=== PATIENT | male | born 1955 | race Caucasian/White ===

== ENCOUNTER → 2018-09-23 13:09 | Outpatient (CLI) | payer OTHER, SELFPAY ==
[2018-09-03 10:31] VITALS: BMI 39.3
[2018-09-23 17:21] LABS: Absolute Lymphocyte Count 2.01 X10^3/ul (0.83-4.51); Absolute Neutrophil Count 3.8 X10^3/uL (2.0-7.7); Basophil# 0.07 X10^3/uL; Eosinophil# 0.15 X10^3/uL; Eosinophils% 2.2 % (0-5); Hematocrit 43.6 % (40-54); Hemoglobin 14.9 g/dl (13.0-16.5); Lymphocyte # 2.01 X10^3/ul (4.0); Mean Corp Hgb Conc 34.2 g/gl (32-36); Mean Corpuscular Hgb 32.7 pg (27.0-32.0); Mean Corpuscular Volume 95.8 fL (80-94); Mean Platelet Vol. 11.1 fl (6.2-12.0); Monocyte# 0.69 X10^3/uL; Monocyte% 10.3 % (0-10); Neutrophil # 3.76 X10^3/uL (2.7-7.7); Neutrophil % 56.4 % (47-70); Platelet Count 160 K/mm3 (150-450); RBC Distribution Width CV 12.6 % (11.6-14.6); Red Blood Count 4.55 M/mm3 (4.6-6.2); White Blood Count 6.7 K/mm3 (4.4-11.0)
[2018-09-23 17:31] LABS: POSITIVE COUNT NO; POSITIVE DIFFERENTIAL NO; POSITIVE MORPHOLOGY NO
[2018-09-23 17:33] LABS: ALB/GLOB Ratio 1.6 RATIO (0.9-2.4); AST(SGOT) 25 U/L (15-37); Alanine Aminotransfer ALT/SGPT 49 U/L (16-61); Albumin, Serum 4.2 g/dL (3.2-5.0); Alkaline Phosphatase 114 U/L (45-117); Anion Gap 10 (5-15); BUN 27 mg/dL (7-18); BUN/Creat Ratio 25.7 RATIO (10-20); Calcium,Total 8.5 mg/dL (8.5-10.1); Chloride 104 mmol/L (98-107); Creatinine, Serum 1.05 mg/dL (0.70-1.30); EST Glomerular Filtration Rate 76 mL/min (>60); Est Glom Filt Rate - Afr Amer 92 mL/min (>60); Globulin 2.7 g/dL (2.2-4.2); Glucose 98 mg/dL (74-106); Protein, Total 6.9 g/dL (6.4-8.2); Sodium Level 138 mmol/L (136-145); Thyroid Stim Hormone (TSH) 0.88 uIU/mL (0.358-3.74)
== END ==
PROVIDERS: Family Provider Family Medicine Geriatric Medicine; PCP Family Medicine Geriatric Medicine; Visit Provider Family Medicine Geriatric Medicine
DX: E23.6 Other disorders of pituitary gland (principal); F52.8 Other sexual dysfunction not due to a substance or known physiological condition; R53.83 Other fatigue
CPT/HCPCS: 36415; 80053; 84403; 84443; 85025

== ENCOUNTER → 2019-08-12 12:08 | Outpatient (CLI) | payer OTHER, SELFPAY ==
[2018-09-03 10:31] VITALS: BMI 39.3
--- NOTE | 2019-08-12 12:11 | CT_ITS ---
STUDY: LOW DOSE CT LUNG CANCER SCREENING REASON FOR EXAM: Male, 64 years old. Patient smoked 3 cigarettes a day for 34 years. RADIATION DOSAGE (If Supplied By Facility): CTDIvol = ( 4.02 ) mGy, DLP = ( 148.48 ) mGycm TECHNIQUE: No contrast was administered. Low dose technique was utilized (average mAS-38 and kVp 120). 1.25 mm axial source images with a slice interval of 1.25-mm were reconstructed in lung windows. 2.5 mm axial source images with a slice interval of 2.5-mm were reconstructed in lung windows. 5.0 mm axial source images with a slice interval of 5.0-mm were reconstructed in soft tissue windows. Nodule measured using lung windows on PACS and/or independent workstation with automated measurement of minimum and maximum diameter. Nodule measurement reported as average diameter rounded to the nearest whole number. Growth is defined as an increase ins size of greater than 1.5 mm. COMPARISON: Comparison is made with prior examination dated January 26, 2015. NODULES: No suspicious nodules are seen. Emphysema: No significant emphysema is seen. Aorta: Unremarkable. Coronary arteries: Coronary artery calcification. Mediastinal nodes: Small benign-appearing mediastinal lymph nodes. Other chest and abdominal findings: CT/Low Dose CT Lung Screening IMPRESSION: Lung-RADS category 2 - Continue annual screening with LDCT in 12 months. IMPORTANT NOTES FOR USE: ACR Lung-RADS Version 1.0 Assessment Categories Release Date: January 30, 2014 Category: Coded 0-4 bases on nodule(s) with highest degree of suspicion. Negative screen is defined as categories 1 and 2; a positive screen is defined as categories 3 and 4. Category 3 and 4A nodules that are unchanged on interval CT should be coded as category 2, and individuals returned to screening in 12 months. Category 4X: Category 3 or 4 nodules with additional imaging findings that increase the suspicion of lung cancer, such as spiculation, GGN that doubles in size in 1 year, enlarged lymph notes, etc. Category Modifiers: S (significant finding unrelated to lung cancer) and C (prior history of treated lung cancer) may be added to the 0-4 Lung-RADS Electronically Signed: Wilder Wang, at 14:56 EST , Service support ,
== END ==
PROVIDERS: Family Provider Family Medicine Geriatric Medicine; PCP Family Medicine Geriatric Medicine; Referring Provider Family Medicine Geriatric Medicine; Visit Provider Family Medicine Geriatric Medicine
DX: Z87.891 Personal history of nicotine dependence (principal)
CPT/HCPCS: G0297

== ENCOUNTER → 2020-01-24 09:39 | Outpatient (CLI) | payer OTHER, SELFPAY ==
[2018-09-03 10:31] VITALS: BMI 39.3
== END ==
PROVIDERS: PCP Family Medicine Geriatric Medicine; Visit Provider Family Medicine Geriatric Medicine
DX: F52.8 Other sexual dysfunction not due to a substance or known physiological condition (principal); R53.83 Other fatigue

== ENCOUNTER → 2020-01-24 10:24 | Outpatient (CLI) | payer OTHER, SELFPAY ==
[2018-09-03 10:31] VITALS: BMI 39.3
[2020-01-24 10:56] LABS: Absolute Lymphocyte Count 2.04 X10^3/uL (0.83-4.51); Absolute Neutrophil Count 3.3 X10^3/uL (2.0-7.7); Basophil# 0.08 X10^3/uL; Basophil% 1.3 % (0-1); Eosinophil# 0.23 X10^3/uL; Eosinophils% 3.7 % (0-5); Hematocrit 43.5 % (40-54); Hemoglobin 14.8 g/dL (13.0-16.5); Lymphocyte # 2.04 X10^3/ul (4.0); Lymphocyte % 32.5 % (19-41); Mean Corpuscular Hgb 32.5 pg (27.0-32.0); Mean Corpuscular Volume 95.4 fL (80-94); Mean Platelet Vol. 10.2 fl (6.2-12.0); Monocyte# 0.57 X10^3/uL; Monocyte% 9.1 % (0-10); NRBC Flagged by Analyzer 0.3 % (0-5); Neutrophil # 3.33 X10^3/uL (2.7-7.7); Neutrophil % 52.9 % (47-70); Platelet Count 158 K/mm3 (150-450); RBC Distribution Width CV 13.1 % (11.6-14.6); RBC Distribution Width SD 46.5 fl (35.1-43.9); Red Blood Count 4.56 M/mm3 (4.6-6.2); White Blood Count 6.3 K/mm3 (4.4-11.0)
[2020-01-24 11:37] LABS: ALB/GLOB Ratio 1.4 RATIO (0.9-2.4); AST(SGOT) 21 U/L (15-37); Alanine Aminotransfer ALT/SGPT 44 U/L (16-61); Albumin, Serum 4.1 g/dL (3.2-5.0); Alkaline Phosphatase 131 U/L (45-117); Anion Gap 5 (5-15); BUN 18 mg/dL (7-18); BUN/Creat Ratio 19.6 RATIO (10-20); Calcium,Total 9.2 mg/dL (8.5-10.1); Chloride 107 mmol/L (98-107); Creatinine, Serum 0.92 mg/dL (0.70-1.30); EST Glomerular Filtration Rate 88 mL/min (>60); Est Glom Filt Rate - Afr Amer 107 mL/min (>60); Globulin 2.9 g/dL (2.2-4.2); Glucose 104 mg/dL (74-106); PSA,Total - Annual Screen 0.52 ng/mL (0.00-4.00); Potassium 4.1 mmol/L (3.5-5.1); Sodium Level 138 mmol/L (136-145)
== END ==
LOC: LAB.FUTURE 10:30 → LAB 10:32
PROVIDERS: PCP Family Medicine Geriatric Medicine; Referring Provider Family Medicine Geriatric Medicine; Visit Provider Family Medicine Geriatric Medicine
DX: R53.83 Other fatigue (principal); F52.8 Other sexual dysfunction not due to a substance or known physiological condition; Z12.5 Encounter for screening for malignant neoplasm of prostate
CPT/HCPCS: 36415; 80053; 84153; 84403; 84443; 85025; G0103

== ENCOUNTER → 2021-01-24 11:01 | Outpatient (CLI) | payer MEDICARE, SELFPAY ==
[2018-09-03 10:31] VITALS: BMI 39.3
[2021-01-24 12:29] LABS: Absolute Lymphocyte Count 1.75 X10^3/uL (0.83-4.51); Basophil# 0.12 X10^3/uL; Basophil% 1.8 % (0-1); Eosinophil# 0.24 X10^3/uL; Eosinophils% 3.5 % (0-5); Hematocrit 45.5 % (40-54); Hemoglobin 15.4 g/dL (13.0-16.5); Lymphocyte # 1.75 X10^3/ul (0.83-4.51); Lymphocyte % 25.8 % (19-41); Mean Corp Hgb Conc 33.8 g/dL (32-36); Mean Corpuscular Hgb 31.7 pg (27.0-32.0); Mean Corpuscular Volume 93.6 fL (80-94); Mean Platelet Vol. 11.1 fl (6.2-12.0); Monocyte# 0.63 X10^3/uL; Monocyte% 9.3 % (0-10); NRBC Flagged by Analyzer 0.4 % (0-5); Neutrophil # 4.02 X10^3/uL (2.7-7.7); Neutrophil % 59.5 % (47-70); Platelet Count 146 K/mm3 (150-450); RBC Distribution Width CV 12.4 % (11.6-14.6); RBC Distribution Width SD 43.3 fl (35.1-43.9); Red Blood Count 4.86 M/mm3 (4.6-6.2); White Blood Count 6.8 K/mm3 (4.4-11.0)
[2021-01-24 12:51] LABS: Vitamin D,25 Hydroxy 40.5 ng/mL
[2021-01-24 13:05] LABS: ALB/GLOB Ratio 1.6 RATIO (0.9-2.4); AST(SGOT) 32 U/L (15-37); Alanine Aminotransfer ALT/SGPT 90 U/L (16-61); Albumin, Serum 4.2 g/dL (3.2-5.0); Alkaline Phosphatase 118 U/L (45-117); Anion Gap 8 (5-15); BUN 26 mg/dL (7-18); Calcium,Total 8.6 mg/dL (8.5-10.1); Chloride 104 mmol/L (98-107); Creatinine, Serum 1.13 mg/dL (0.70-1.30); EST Glomerular Filtration Rate 69 mL/min (>60); Est Glom Filt Rate - Afr Amer 84 mL/min (>60); Globulin 2.7 g/dL (2.2-4.2); Glucose 108 mg/dL (74-106); PSA,Total - Annual Screen 0.46 ng/mL (0.00-4.00); Potassium 3.6 mmol/L (3.5-5.1); Protein, Total 6.9 g/dL (6.4-8.2); Sodium Level 139 mmol/L (136-145); Thyroid Stim Hormone (TSH) 1.31 uIU/mL (0.358-3.74)
== END ==
PROVIDERS: PCP Family Medicine Geriatric Medicine; Visit Provider Family Medicine Geriatric Medicine
DX: E55.9 Vitamin D deficiency, unspecified (principal); F52.8 Other sexual dysfunction not due to a substance or known physiological condition; R53.83 Other fatigue; Z12.5 Encounter for screening for malignant neoplasm of prostate
CPT/HCPCS: 36415; 80053; 82306; 84153; 84403; 84443; 85025; G0103

== ENCOUNTER → 2021-02-12 15:23 | Outpatient (CLI) | payer MEDICARE, BC, SELFPAY ==
[2018-09-03 10:31] VITALS: BMI 39.3
--- NOTE | 2021-02-12 15:28 | MRI_ITS ---
STUDY: MRI BRAIN WITH AND WITHOUT CONTRAST (ATTENTION INTERNAL AUDITORY CANALS - I.A.C.''s) REASON FOR EXAM: Male, 66 years old. VERTIGO TECHNIQUE: Standardized multiplanar fat and water weighted pulse sequences were obtained. IV Yes YES was administered for the contrast portion of the examination. COMPARISON: None. FINDINGS: Normal bilateral temporal bones. Normal bilateral internal auditory canals. There is no demonstrated intracanalicular or cisternal vestibular schwannoma (acoustic neuroma). There is no enhancement of the bilateral VIIth or VIIIth cranial nerves. Normal bilateral cochlea, vestibules and semicircular canals. Normal size of the ventricles and extra-axial spaces for the patient''s age. Normal white matter tracts of the supratentorial brain. There is no evidence for recent intracranial ischemia or other cause of cytotoxic edema on diffusion weighted imaging (DWI). Normal bilateral basal ganglia. Normal thalami. Normal flow voids within the major intracranial circulation suggesting patency by spin echo criteria. Normal venous enhancement. There is no enhancing intra-axial or extra-axial abnormality. There is no extra-axial fluid accumulation. Normal sella turcica, pituitary gland, infundibular stalk, optic chiasm and hypothalamus. Normal tectal plate and pineal gland. Normal midbrain, jeni and medulla. Normal cerebellum. Normal basal cisterns. No demonstrated orbital abnormality, within the constraints of a routine brain study. Normal visualized paranasal sinuses. Normal calvarium and skull base. Normal visualized soft tissue structures. Normal visualized upper cervical spine. MRI/Brain W/WO Contrast IMPRESSION: Normal unenhanced and enhanced MRI of the bilateral internal auditory canals (I.A.C''s). Electronically Signed: Hammad Monsalve MD at 8:20 EDT Tel , Service support ,
== END ==
PROVIDERS: PCP Family Medicine Geriatric Medicine; Referring Provider Otolaryngology; Visit Provider Otolaryngology
DX: R42 Dizziness and giddiness (principal)
CPT/HCPCS: 70553; A9575

== ENCOUNTER → 2021-08-19 17:15 | Outpatient (CLI) | payer MEDICARE, BC, SELFPAY ==
[2021-08-19 17:45] LABS: Absolute Lymphocyte Count 2.12 X10^3/uL (0.83-4.51); Basophil# 0.11 X10^3/uL; Basophil% 1.3 % (0-1); Eosinophils% 2.4 % (0-5); Hematocrit 42.2 % (40-54); Hemoglobin 14.5 g/dL (13.0-16.5); Lymphocyte # 2.12 X10^3/ul (0.83-4.51); Lymphocyte % 25.1 % (19-41); Mean Corp Hgb Conc 34.4 g/dL (32-36); Mean Corpuscular Hgb 33.1 pg (27.0-32.0); Mean Corpuscular Volume 96.3 fL (80-94); Monocyte# 0.95 X10^3/uL; Monocyte% 11.2 % (0-10); NRBC Flagged by Analyzer 0.6 % (0-5); Neutrophil # 5.02 X10^3/uL (2.7-7.7); Neutrophil % 59.4 % (47-70); Platelet Count 151 K/mm3 (150-450); RBC Distribution Width CV 12.7 % (11.6-14.6); RBC Distribution Width SD 45.7 fl (35.1-43.9); Red Blood Count 4.38 M/mm3 (4.6-6.2); White Blood Count 8.5 K/mm3 (4.4-11.0)
[2021-08-19 19:00] LABS: Anion Gap 4 (5-15); BUN 13 mg/dL (7-18); CPK Total, Creatine Kinase 55 U/L (39-308); Chloride 106 mmol/L (98-107); Creatinine, Serum 0.93 mg/dL (0.70-1.30); EST Glomerular Filtration Rate 87 mL/min (>60); Est Glom Filt Rate - Afr Amer 105 mL/min (>60); Glucose 97 mg/dL (74-106); Potassium 4.1 mmol/L (3.5-5.1); Sodium Level 139 mmol/L (136-145); Troponin-I HS 5 pg/mL (3.0-78.0)
[2021-08-21 10:03] LABS: Myoglobin, Serum 35 ng/mL (28-72)
== END ==
PROVIDERS: PCP Family Medicine Geriatric Medicine; Visit Provider Family Medicine Geriatric Medicine
DX: R07.9 Chest pain, unspecified (principal)
CPT/HCPCS: 36415; 80048; 82550; 83874; 84484; 85025

== ENCOUNTER → 2021-09-04 05:59 | Outpatient (CLI) | payer MEDICARE, BC, SELFPAY ==
--- NOTE | 2021-09-04 06:08 | ECHOCS_ITS ---
Reason For Study: SOB Procedure This was a 2D Doppler, Color Flow transthoracic echocardiogram. Contrast injection was performed. Exam performed in department. Left Ventricle Normal LV size. Left ventricular systolic function is normal. The estimated ejection fraction is 60 %. No regional wall motion abnormalities noted. Right Ventricle Normal RV size. Normal systolic function. Atria Normal left atrium. Normal right atrium. Mitral Valve Normal mitral valve. Tricuspid Valve Normal tricuspid valve. Aortic Valve Trisinus/trileaflet aortic valve. Pulmonic Valve The pulmonic valve is not well visualized. Great Vessels Normal aortic root. The pulmonary artery is normal size. Normal inferior vena cava. Pericardium/Pleural No pericardial effusion. Medication Diluted definity 2ml given slow IV push to enhance endocardial definition. MMode/2D Measurements & Calculations LVIDd: 4.8 cm IVSd: 1.2 cm Ao root diam: 3.5 cm LVIDs: 2.7 cm LVPWd: 0.92 cm RVDd: 3.2 cm FS: 43.7 % LAV(MOD-bp): 31.6 ml LVAd ap4: 32.0 cm2 SV(MOD-sp4): 67.4 ml LAV(MOD-bp) Indexed: 12.9 ml/m2 LVLd ap4: 8.1 cm LAV(MOD-sp2): 31.3 ml EDV(MOD-sp4): 104.9 ml LAV(MOD-sp4): 30.3 ml EDV(sp4-el): 107.2 ml LVAs ap4: 16.4 cm2 LVLs ap4: 5.9 cm ESV(MOD-sp4): 37.6 ml ESV(sp4-el): 39.1 ml EF(MOD-sp4): 64.2 % EF(sp4-el): 63.6 % SV(sp4-el): 68.2 ml LA A4 area: 14.2 cm2 LA dimension(2D): 3.9 cm RA A4 area: 15.8 cm2 Doppler Measurements & Calculations MV E max hernan: 60.4 cm/sec Lat Peak E' Ehrnan: 9.6 cm/sec Med Peak E' Hernan: 5.9 cm/sec MV A max hernan: 86.1 cm/sec E/E' lat: 6.3 E/E' med: 10.3 MV E/A: 0.70 Ao V2 max: 114.7 cm/sec LV V1 max: 103.8 cm/sec PA V2 max: 110.2 cm/sec Ao max P.3 mmHg LV V1 max P.3 mmHg Ao V2 mean: 83.3 cm/sec Ao mean P.0 mmHg Ao V2 VTI: 22.8 cm TR max hernan: 193.9 cm/sec TR max P.0 mmHg ECHO/Echo Complete W/ Contrast Interpretation Summary Normal LV size. Left ventricular systolic function is normal. The estimated ejection fraction is 60 %. Contrast injection was performed. Ordering Physician: Robert Harden Referring Physician: Robert Harden Chi Performed By: Sana Chan, JESUS, RVT
--- NOTE | 2021-09-04 14:55 | STRESSREP_ITS ---
Stress Test Report Date: 09-04-2021 Procedure: Exercise tolerance test/imaging study Indications: Chest pain Consent: Per the patient Procedure: The patient exercised on a El protocol for 6 minutes and 30 seconds completing Stage II and 30 seconds of Stage III achieving a peak heart rate of 134 bpm (86% predicted maximal heart rate) with a peak blood pressure 190/80 mmHg and a peak MET capacity of 8 METs. The baseline ECG demonstrated sinus rhythm. The peak exercise ECG demonstrated somatic/motion artifact with no obvious ECG changes. There was a rare PVC and a rare ventricular couplet during exercise. The functional capacity was considered good. There was no complaint of chest discomfort during exercise or recovery. The examination was discontinued secondary to dyspnea. Impression: 1. Technically adequate (percent predicted maximal heart rate greater than 85%) exercise tolerance test 2. Peak exercise ECG with somatic/motion artifact with no obvious ECG changes 3. There was a rare PVC and a rare ventricular couplet during exercise 4. Nuclear images pending Myocardial perfusion imaging study: Technique: The patient was injected with 14.8 mCi of technetium 99m Cardiolite and subsequently rest SPECT Cardiolite nuclear imaging was obtained in the horizontal long, vertical long, and short axis views. The patient exercised on a El protocol for 6 minutes and 30 seconds completing Stage II and 30 seconds of Stage III achieving a peak heart rate of 134 bpm (86% predicted maximal heart rate) with a peak blood pressure 190/80 mmHg and a peak MET capacity of 8 METs. The patient was injected with 44.5 mCi of technetium 99m Cardiolite and subsequently stress SPECT Cardiolite nuclear imaging was obtained in the horizontal long, vertical long, and short axis views. A gated Cardiolite study at peak stress was obtained. Interpretation: Rest and stress SPECT Cardiolite nuclear imaging status post realignment, normalization, and attenuation correction, demonstrates the appearance of relative uniform tracer uptake and myocardial perfusion appearing within normal limits. There is end systolic thickening and brightening. The gated Cardiolite study demonstrates myocardial thickening and inward wall motion. The reported LVEF is 74%. Impression: 1. Rest and stress SPECT Cardiolite nuclear imaging demonstrate relative uniform tracer uptake and myocardial perfusion appearing within normal limits. 2. The gated Cardiolite study reports an LVEF of 74%. This note was generated with [employer] Standard [employer] software. It may contain incorrect words, spelling, and punctuation that were not noted in checking the note before signing.
== END ==
PROVIDERS: PCP Family Medicine Geriatric Medicine; Referring Provider Family Medicine Geriatric Medicine; Visit Provider Family Medicine Geriatric Medicine
DX: R06.02 Shortness of breath (principal); R07.9 Chest pain, unspecified
CPT/HCPCS: 78452; 93017; 93306; A9500; Q9957; A4216; C8929

== ENCOUNTER → 2022-01-27 | Outpatient (CLI) | payer MEDICARE, BC, SELFPAY ==
[2022-01-27 11:37] LABS: Absolute Neutrophil Count 2.2 X10^3/uL (2.0-7.7); Basophil# 0.06 X10^3/uL; Basophil% 1.3 % (0-1); Eosinophil# 0.19 X10^3/uL; Eosinophils% 4.3 % (0-5); Hematocrit 39.1 % (40-54); Hemoglobin 13.4 g/dL (13.0-16.5); Lymphocyte % 31.5 % (19-41); Mean Corp Hgb Conc 34.3 g/dL (32-36); Mean Corpuscular Hgb 33.6 pg (27.0-32.0); Mean Platelet Vol. 10.1 fl (6.2-12.0); Monocyte# 0.55 X10^3/uL; Monocyte% 12.4 % (0-10); NRBC Flagged by Analyzer 0.4 % (0-5); Neutrophil # 2.23 X10^3/uL (2.7-7.7); Neutrophil % 50.1 % (47-70); Platelet Count 133 K/mm3 (150-450); RBC Distribution Width CV 13.6 % (11.6-14.6); RBC Distribution Width SD 49.1 fl (35.1-43.9); Red Blood Count 3.99 M/mm3 (4.6-6.2); White Blood Count 4.5 K/mm3 (4.4-11.0)
[2022-01-27 11:53] LABS: Vitamin D,25 Hydroxy 50.3 ng/mL
[2022-01-27 12:06] LABS: ALB/GLOB Ratio 1.6 RATIO (0.9-2.4); AST(SGOT) 48 U/L (15-37); Alanine Aminotransfer ALT/SGPT 111 U/L (16-61); Alkaline Phosphatase 103 U/L (45-117); Anion Gap 6 (5-15); BUN 22 mg/dL (7-18); BUN/Creat Ratio 21.6 RATIO (10-20); Calcium,Total 8.5 mg/dL (8.5-10.1); Chloride 108 mmol/L (98-107); Creatinine, Serum 1.02 mg/dL (0.70-1.30); EST Glomerular Filtration Rate 78 mL/min (>60); Est Glom Filt Rate - Afr Amer 94 mL/min (>60); Globulin 2.5 g/dL (2.2-4.2); Glucose 99 mg/dL (74-106); PSA,Total - Annual Screen 0.49 ng/mL (0.00-4.00); Potassium 4.3 mmol/L (3.5-5.1); Protein, Total 6.5 g/dL (6.4-8.2); Sodium Level 140 mmol/L (136-145); Thyroid Stim Hormone (TSH) 1.19 uIU/mL (0.358-3.74)
== END | disposition home or self-care (01) ==
LOC: POLAB3 09:59
PROVIDERS: PCP Family Medicine Geriatric Medicine; Visit Provider Family Medicine Geriatric Medicine
DX: E55.9 Vitamin D deficiency, unspecified (principal); R53.83 Other fatigue; F52.8 Other sexual dysfunction not due to a substance or known physiological condition; Z12.5 Encounter for screening for malignant neoplasm of prostate
CPT/HCPCS: 36415; 80053; 82306; 84153; 84403; 84443; 85025; G0103

== ENCOUNTER → 2022-01-30 | Outpatient (CLI) | payer MEDICARE, BC, SELFPAY ==
--- NOTE | 2022-01-30 10:14 | US_ITS ---
STUDY: ABDOMINAL ULTRASOUND - RIGHT UPPER QUADRANT REASON FOR VISIT: Male, 67 years old LIVER ENZYMES ABN TECHNIQUE: Ultrasound evaluation of the right upper quadrant was performed with real-time and static lowe-scale imaging. TECHNICAL QUALITY: Adequate. COMPARISON: None. FINDINGS: Liver: The liver measures 14.6 cm. There is increased echogenicity consistent with fatty infiltration. The bile ducts are within normal limits. There is hepatic color flow. The direction of portal flow is hepatopetal. There is no demonstrated mass lesion. Gallbladder: Normal distended gallbladder. The gallbladder wall measures 2.2 mm. There is a negative sonographic Donato''s sign. There is no pericholecystic fluid. There are no gallstones. Common Bile Duct (C.B.D.): The common bile duct measures 2.3 mm. Pancreas: Normal size of the head, body and tail of the pancreas. There is normal echogenicity of the pancreas. There is no demonstrated pancreatic mass or cyst. Right Kidney: Normal size of the right kidney. The right kidney measures 12.5 cm x 5 cm x 5.7 cm. Normal renal cortex. The right cortex measures 2.0 cm. There is no demonstrated renal mass or cyst. There is no right hydronephrosis. US/Abdomen Limited IMPRESSION: Normal right upper quadrant ultrasound examination. Electronically Signed: Wilder Wang MD at 11:32 EDT ,
[2022-01-30 13:11] LABS: Hepatitis B Surface Antibody Non-Reactive; Hepatitis C Antibody Non-Reactive (Nonreactive)
[2022-01-31 12:48] LABS: Hepatitis A AB, Total Negative (Negative)
== END | disposition home or self-care (01) ==
LOC: US 10:06
PROVIDERS: PCP Family Medicine Geriatric Medicine; Referring Provider Family Medicine Geriatric Medicine; Visit Provider Family Medicine Geriatric Medicine
DX: R74.8 Abnormal levels of other serum enzymes (principal)
CPT/HCPCS: 36415; 76705; 86706; 86708; 86803

== ENCOUNTER → 2022-02-11 | Outpatient (CLI) | payer MEDICARE, BC, SELFPAY ==
--- NOTE | 2022-02-11 07:23 | US_ITS ---
STUDY: ABDOMINAL ULTRASOUND - ELASTOGRAPHY REASON FOR VISIT: Male, 67 years old. Fatty infiltration of the liver. TECHNIQUE: Liver stiffness measurements were obtained on a [employer]ellit[employer] RS 85 ultrasound machine using a CA 1-7 probe following the SRU guidelines. 3 measurements were obtained using a 2-D-SWE method. The IQR/M was 18% suggesting a quality data set. TECHNICAL QUALITY: Adequate. COMPARISON: Comparison is made with prior study dated 01/30/2022. FINDINGS: Liver: Fatty infiltration of the liver. Median liver stiffness measured 7.2 kPa. US/Elastography Parenchyma/Organ IMPRESSION: Liver stiffness measures 7.2 kPa compatible with F2-F3 (Mild to moderate liver fibrosis) Metavir score. Electronically Signed: Wilder Wang MD at 10:09 EDT ,
== END | disposition home or self-care (01) ==
LOC: US 07:21
PROVIDERS: PCP Family Medicine Geriatric Medicine; Visit Provider Family Medicine Geriatric Medicine
DX: K76.0 Fatty (change of) liver, not elsewhere classified (principal)
CPT/HCPCS: 76981

== ENCOUNTER 2023-02-18 15:53 | Observation (INO) | payer MEDICARE, BC, SELFPAY ==
--- NOTE | 2023-02-16 08:46 | EKG12_ITS ---
Test Reason : PRE-OP Blood Pressure : / mmHG Vent. Rate : 056 BPM Atrial Rate : 056 BPM P-R Int : 222 ms QRS Dur : 096 ms QT Int : 404 ms P-R-T Axes : 029 004 017 degrees QTc Int : 389 ms Sinus bradycardia with 1st degree A-V block Low voltage QRS Inferior infarct , age undetermined Abnormal ECG Confirmed by REBECCA LIRIANO, PIPPA ([id number]), scientific editor DOT DA SILVA ([id number]) on 02/16/2023 1:49:14 PM Referred By: Ric López Confirmed By:PIPPA FERNANDEZ MD
[2023-02-16 09:23] LABS: Hematocrit 39.6 % (40-54); Hemoglobin 13.7 g/dL (13.0-16.5); Mean Corp Hgb Conc 34.6 g/dL (32-36); Mean Corpuscular Hgb 34.6 pg (27.0-32.0); Mean Platelet Vol. 10.3 fl (6.2-12.0); Platelet Count 128 K/mm3 (150-450); RBC Distribution Width CV 13.2 % (11.6-14.6); RBC Distribution Width SD 48.8 fl (35.1-43.9); Red Blood Count 3.96 M/mm3 (4.6-6.2); White Blood Count 5.3 K/mm3 (4.4-11.0)
[2023-02-16 09:54] LABS: International Normalized Ratio 1.1; Prothrombin Time (Protime)PT. 14.4 SECONDS (11.7-14.9)
[2023-02-16 09:55] LABS: Partial Thromboplast Time 32.1 Seconds (24.1-36.2)
[2023-02-16 10:17] LABS: AST(SGOT) 25 U/L (15-37); Alanine Aminotransfer ALT/SGPT 43 U/L (16-61); Albumin, Serum 3.9 g/dL (3.2-5.0); Alkaline Phosphatase 107 U/L (45-117); Bilirubin, Direct 0.22 mg/dL (0.00-0.30); Globulin 2.2 g/dL (2.2-4.2); Protein, Total 6.1 g/dL (6.4-8.2)
[2023-02-18] VITALS (9 sets, daily range): BP systolic 112–153; BP diastolic 71–92; PULSE 50–65; RESP 16; TEMP 36.6–36.8; O2SAT 96–99; BMI 31.1
--- NOTE | 2023-02-18 | PROS_PTH ---
PATIENT: DANIELLA RUGGIERO LOC: MS3 U#:[id number] AGE/SX: 68/M ROOM: MS309 RE02/18/[address]: Dr. Ric López MD : [id number] BED: 1 DIS: 02/19/2023 SPEC #: [id number] RECD: 02/18/23 15:57 STATUS: SHENA THAYER #: [id number] THERESA: 02/18/23 00:[address]: Ric López DEPT: SURGICAL PATHOLOGY RECD BY: Jesus Rm ENTERED: 02/19/23 11:55 SP TYPE: TURP OTHR DR: Dr. Robert Harden MD Tissues: Prostate, NOS Procedures: Surgery Specimen Level IV HEADER OPERATION: Cysto, TUR prostate, Olympus PRE-OP DIAGNOSIS: BPH with obstruction, incomplete bladder emptying TISSUE SUBMITTED: Prostate chips MICROSCOPIC DIAGNOSIS Prostate, transurethral resection: Benign nodular hyperplasia, glandular and stromal types. Mild chronic inflammation. AM:bjorn 02/20/2023 MICROSCOPIC DESCRIPTION Slides are reviewed. GROSS DESCRIPTION Received is one container labeled with the patient's name and designated prostate chips. The specimen consists of multiple irregular fragments of pink-dupree, rubbery, soft tissue that in aggregate weigh 8.6 gm and measure in aggregate 4.5 x 5.0 x 1.5 cm. The entire specimen is submitted in nine cassettes. / SJ:bjorn 02/19/2023 TC:3 [facility]: [id number]
[2023-02-18] MEDS: Lactated Ringers 1,000 ML 15 ML IV (12:38)
--- NOTE | 2023-02-18 13:31 | HP.PCM_ITS ---
HPI - General General Date of Service: 02/18/23 Chief Complaint: BPH with obstruction incomplete bladder emptying HPI Narrative DANIELLA RUGGIERO, is a 68 M who presents for transurethral section of the prostate for BPH with obstruction and incomplete bladder emptying [facility] Medical History (Updated 02/13/23 @ 15:10 by Zoraida Balderrama) Alcohol use Arthritis Back pain Chronic neck and back pain CPAP (continuous positive airway pressure) dependence Easy bruising Fatty liver Former smoker Gastric reflux Hemorrhoids History of echocardiogram History of edema History of hiatal hernia History of rheumatic fever History of stress test Injury of head and neck Leg cramps Loss of hearing Meniere disease Prostate disease Shoulder pain Wears glasses Home Medications omeprazole 20 mg tablet,delayed release 20 mg PO DAILY 09/03/18 [History Last Taken 02/18/23 08:00] lactobacillus combination no.4 3 billion cell capsule (Probiotic) 3,000 mmu cells PO DAILY 02/13/23 [History Last Taken Unknown] tamsulosin 0.4 mg capsule (Flomax) 0.4 mg PO DAILY 02/13/23 [History Last Taken Unknown] ciprofloxacin HCl 500 mg tablet (Cipro) 500 mg PO BID #14 tabs 02/18/23 [Rx Last Taken Unknown] Allergy/AdvReac Type Severity Reaction Status Date / Time No Known Allergies Allergy Unverified 02/18/23 12:20 Surgical History (Updated 02/13/23 @ 15:10 by Zoraida Balderrama) History of esophagogastroduodenoscopy (EGD) History of vocal cord polypectomy Hx of colonoscopy Hx of inguinal hernia repair Social History (Updated 09/03/18 @ 14:18 by Ирина RING, PA) Smoking Status: Former smoker Vital Signs Vital Signs Vital Signs: 02/18/23 12:26 02/18/23 12:26 Temperature 98.3 F Temperature Source Temporal Pulse Rate 63 Respiratory Rate 16 Respiratory Pattern Normal Blood Pressure 153/92 H Blood Pressure Mean 112 Blood Pressure Source Monitor Blood Pressure Position Sitting Blood Pressure Location Right Arm Pulse Ox 99 Oxygen Delivery Method Room Air Weight Weight: 110 kg Body Mass Index (BMI) 31.1 Results Lab / Micro Data Result Diagrams: 02/16/23 09:01
--- NOTE | 2023-02-18 13:32 | DCINST_ITS ---
Discharge Instructions Diet Discharge Diet: No restrictions Follow Up Care Please Follow Up With: Ric López MD Test Results: Test results from this visit will be discussed in further detail at your follow- up appointment, if applicable. Discharge Plan Admission Primary Reason for Your Visit: turp Attending Provider: Ric López Primary Care Provider: Robert Harden Chi Discharge Orders/Prescriptions Prescriptions: New ciprofloxacin HCl [Cipro] 500 mg tablet 500 mg PO BID Qty: 14 0RF Continued omeprazole 20 mg tablet,delayed release (DR/EC) 20 mg PO DAILY tamsulosin [Flomax] 0.4 mg Capsule 0.4 mg PO DAILY Probiotic 3 billion cell Capsule 3,000 mmu cells PO DAILY Rx Instructions: administer with a meal Referrals / Follow Up: Ric López MD [Med Staff - Active Staff] - Robert Harden Chi, MD [Primary Care Provider] - Disposition Disposition (needs filled in before D/C Order can be placed): Home, Self Care
[2023-02-18] MEDS: Cefazolin 2 GM in 0.9% Normal Saline 100 ML IV (13:52)
--- NOTE | 2023-02-18 14:43 | PCM.OPRPT ---
Report of Operation Date of Procedure: 02/18/23 Pre-Operative Diagnosis: BPH with obstruction atonic bladder stretched out Post-Operative Diagnosis: The same Surgery/Procedure Performed:: Transurethral section of the prostate Description of Surgical Findings:: Patient was taken back to the operating room at the smooth induction of general anesthesia he was placed in dorsolithotomy position. The penis and testicles were prepped and draped in usual sterile fashion, went into the bladder with a 24 [place] noncontinuous flow resectoscope using a large loop. Identified the prostate he had a short but obstructive prostate he had a very stretched out bladder from chronic obstruction and trabeculated bladder identify the right and left ureteral orifice I then proceeded with the resection and I resected the floor the prostate right lobe of the prostate the left lobe the prostate very carefully resected the apical tissue in the roof of the prostate at the end of the procedure the sphincter was intact verumontanum was intact had a nice wide open channel all the way to the bladder all the prostate chips were Ellik out of the bladder and cauterization was done of the prostate and then put a catheter in the bladder continuous irrigation anesthetic was reversed and taken back to PACU in good condition. Surgeon: Ric López Type of Anesthesia: General Drains: 22fr 3 way Estimated Blood Loss (mL): 0 Admit VTE Documentation VTE Present on Admission: No VTE Mechan Device Prophylaxis: SCD's VTE Pharm Prophylaxis ordered?: No
[2023-02-18] MEDS: Lactated Ringers 1,000 ML 125 ML IV ×2 (15:05→22:15)
--- NOTE | 2023-02-18 15:44 | SUR.PHASEI ---
called [facility] to give report, charge nurse notes Dr. lópez did not put an admit order in, our charge nurse is aware and has Dr. López paged. I am able to send put unstairs when the order is in.
--- NOTE | 2023-02-18 15:59 | SUR.PHASEI ---
patient has script on [facility]
[2023-02-18] MEDS: Tamsulosin HCl 0.4 MG Capsule PO (18:13)
[2023-02-19 00:20] VITALS: BP 136/87; PULSE 65; RESP 16; TEMP 36.6; O2SAT 96
[2023-02-19 04:18] VITALS: BP 141/95; PULSE 56; RESP 16; TEMP 36.4; O2SAT 96
[2023-02-19] MEDS: Lactated Ringers 1,000 ML 125 ML IV (06:20)
[2023-02-19] MEDS: Pantoprazole Sodium 20 MG Tablet PO (08:09)
[2023-02-19 08:14] VITALS: BP 143/86; PULSE 60; RESP 16; TEMP 36.2; O2SAT 96
--- NOTE | 2023-02-19 09:24 | NURSING ---
Pt voided 100cc of urine. Pt discharged.
== END 2023-02-19 09:24 | disposition home or self-care (01) ==
LOC: SDC 15:59 → MS3 15:59
PROVIDERS: Anesthesiology; Admitting Provider Urology; PCP Family Medicine Geriatric Medicine; Referring Provider Urology; Visit Provider Urology
PROC: (CPT 52601; principal; 2023-02-18 14:20)
DX: N40.1 Benign prostatic hyperplasia with lower urinary tract symptoms (principal); N13.8 Other obstructive and reflux uropathy; R39.14 Feeling of incomplete bladder emptying; Z87.891 Personal history of nicotine dependence; Z79.899 Other long term (current) drug therapy; K21.9 Gastro-esophageal reflux disease without esophagitis; M19.90 Unspecified osteoarthritis, unspecified site; N31.2 Flaccid neuropathic bladder, not elsewhere classified; I44.0 Atrioventricular block, first degree; R94.31 Abnormal electrocardiogram [ECG] [EKG]; R00.1 Bradycardia, unspecified; Z86.2 Personal history of diseases of the blood and blood-forming organs and certain disorders involving the immune mechanism
CPT/HCPCS: 52601; 00914; 36415; 80076; 85027; 85610; 85730; 88305; 93005; 94668; 96360; 96361; 99221; J7120; G0378; J2405

== ENCOUNTER → 2023-05-07 | Outpatient (CLI) | payer MEDICARE, BC, SELFPAY ==
--- NOTE | 2023-05-07 07:10 | MRI_ITS ---
STUDY: MRI LEFT ANKLE WITHOUT CONTRAST REASON FOR EXAM: Male, 68 years old. Lateral pain when going downstairs 2 years. Evaluate peroneal tendon. TECHNIQUE: Standardized fat and water weighted pulse sequences were obtained in all 3 orthogonal planes. COMPARISON: None. FINDINGS: Normal subcutis adipose space. Mild posterior tibialis tendinosis with thickening and slight increased signal intensity (axial series 3 image 6-11). Normal flexor digitorum longus tendon. Normal flexor hallucis longus tendon. Mild peroneus longus tendinosis with thickening (axial series 4 images 10-15). Normal tibialis anterior tendon. Normal extensor hallucis longus tendon. Normal extensor digitorum longus tendons. Normal Achilles tendon and teno-osseous insertion. Normal plantar fascia. Normal plantar calcaneal tubercles. Normal intrinsic muscles of the rearfoot. Normal distal tibiofibular syndesmotic ligamentous complex. Normal lateral ligamentous complex. Normal subtalar ligaments and sinus tarsi. Normal deltoid ligamentous complexes. Normal plantar calcaneonavicular (spring) ligament. Mild arthrosis of the tibiotalar joint with a small tibiotalar joint effusion. Os trigonum, a normal variant (sagittal series 10 images 9-15). Normal talar dome. Mild arthrosis of the subtalar joint (sagittal series 10 images 9-13). Normal talonavicular articulation. Normal calcaneocuboid articulation. Normal navicular-cuneiform articulations. MRI/Lower Ext Joint Only (Routine) IMPRESSION: Mild posterior tibialis and peroneus longus tendinosis. No Ling synovitis. Mild arthrosis of the tibiotalar and subtalar joints. Os trigonum, a normal variant. No other abnormality. Electronically Signed: Bunny Ayala MD at 12:12 EDT ,
== END | disposition home or self-care (01) ==
LOC: MRI 06:53
PROVIDERS: PCP Family Medicine Geriatric Medicine; Referring Provider Podiatrist; Visit Provider Podiatrist
DX: S86.392A Other injury of muscle(s) and tendon(s) of peroneal muscle group at lower leg level, left leg, initial encounter (principal)
CPT/HCPCS: 73721

== ENCOUNTER → 2023-06-04 | Outpatient (CLI) | payer MEDICARE, BC, SELFPAY ==
[2023-06-04 12:20] LABS: Absolute Lymphocyte Count 1.75 X10^3/uL (0.83-4.51); Absolute Neutrophil Count 3.5 X10^3/uL (2.0-7.7); Basophil# 0.14 X10^3/uL; Basophil% 2.3 % (0-1); Eosinophils% 3.2 % (0-5); Hematocrit 41.4 % (40-54); Lymphocyte # 1.75 X10^3/ul (0.83-4.51); Lymphocyte % 28.4 % (19-41); Mean Corp Hgb Conc 33.8 g/dL (32-36); Mean Corpuscular Hgb 34.1 pg (27.0-32.0); Mean Platelet Vol. 10.1 fl (6.2-12.0); Monocyte# 0.56 X10^3/uL; Monocyte% 9.1 % (0-10); NRBC Flagged by Analyzer 0.8 % (0-5); Neutrophil # 3.49 X10^3/uL (2.7-7.7); Neutrophil % 56.5 % (47-70); Platelet Count 125 K/mm3 (150-450); RBC Distribution Width CV 13.2 % (11.6-14.6); RBC Distribution Width SD 49.1 fl (35.1-43.9); White Blood Count 6.2 K/mm3 (4.4-11.0)
[2023-06-04 13:05] LABS: Vitamin D,25 Hydroxy 49.2 ng/mL
[2023-06-04 13:32] LABS: ALB/GLOB Ratio 1.5 RATIO (0.9-2.4); AST(SGOT) 20 U/L (15-37); Alanine Aminotransfer ALT/SGPT 43 U/L (16-61); Albumin, Serum 3.9 g/dL (3.2-5.0); Alkaline Phosphatase 122 U/L (45-117); Anion Gap 7 (5-15); BUN 12 mg/dL (7-18); BUN/Creat Ratio 13.4 RATIO (10-20); Calcium,Total 8.9 mg/dL (8.5-10.1); Chloride 110 mmol/L (98-107); EST Glomerular Filtration Rate 90 mL/min (>60); Est Glom Filt Rate - Afr Amer 109 mL/min (>60); Globulin 2.6 g/dL (2.2-4.2); Glucose 104 mg/dL (74-106); PSA,Total - Annual Screen 0.38 ng/mL (0.00-4.00); Potassium 4.4 mmol/L (3.5-5.1); Protein, Total 6.5 g/dL (6.4-8.2); Sodium Level 139 mmol/L (136-145); Thyroid Stim Hormone (TSH) 1.63 uIU/mL (0.358-3.74)
== END | disposition home or self-care (01) ==
LOC: POLAB3 09:19
PROVIDERS: PCP Family Medicine Geriatric Medicine; Visit Provider Family Medicine Geriatric Medicine
DX: R53.83 Other fatigue (principal); E55.9 Vitamin D deficiency, unspecified; Z12.5 Encounter for screening for malignant neoplasm of prostate
CPT/HCPCS: 36415; 80053; 82306; 84153; 84443; 85025; G0103

== ENCOUNTER → 2024-06-10 | Outpatient (CLI) | payer MEDICARE, BC, SELFPAY ==
[2024-06-10 09:55] LABS: Absolute Lymphocyte Count 1.64 X10^3/uL (0.83-4.51); Absolute Neutrophil Count 3.3 X10^3/uL (2.0-7.7); Basophil# 0.09 X10^3/uL; Basophil% 1.5 % (0-1); Eosinophil# 0.21 X10^3/uL; Eosinophils% 3.6 % (0-5); Hemoglobin 13.5 g/dL (13.0-16.5); Lymphocyte # 1.64 X10^3/ul (0.83-4.51); Lymphocyte % 27.8 % (19-41); Mean Corp Hgb Conc 34.6 g/dL (32-36); Mean Corpuscular Hgb 33.8 pg (27.0-32.0); Mean Corpuscular Volume 97.5 fL (80-94); Mean Platelet Vol. 10.4 fl (6.2-12.0); Monocyte# 0.59 X10^3/uL; NRBC Flagged by Analyzer 0.7 % (0-5); Neutrophil # 3.34 X10^3/uL (2.7-7.7); Neutrophil % 56.8 % (47-70); Platelet Count 124 K/mm3 (150-450); RBC Distribution Width CV 13.1 % (11.6-14.6); RBC Distribution Width SD 46.9 fl (35.1-43.9); White Blood Count 5.9 K/mm3 (4.4-11.0)
[2024-06-10 10:30] LABS: Vitamin D,25 Hydroxy 38.9 ng/mL
[2024-06-10 11:02] LABS: ALB/GLOB Ratio 1.3 RATIO (0.9-2.4); AST(SGOT) 27 U/L (15-37); Alanine Aminotransfer ALT/SGPT 45 U/L (16-61); Albumin, Serum 3.8 g/dL (3.2-5.0); Alkaline Phosphatase 119 U/L (45-117); Anion Gap 8 (5-15); BUN 19 mg/dL (7-18); BUN/Creat Ratio 19.2 RATIO (10-20); Chloride 109 mmol/L (98-107); Creatinine, Serum 0.99 mg/dL (0.70-1.30); EST Glomerular Filtration Rate 80 mL/min (>60); Est Glom Filt Rate - Afr Amer 97 mL/min (>60); Globulin 2.9 g/dL (2.2-4.2); Glucose 111 mg/dL (74-106); PSA,Total - Annual Screen 0.26 ng/mL (0.00-4.00); Potassium 4.1 mmol/L (3.5-5.1); Protein, Total 6.7 g/dL (6.4-8.2); Sodium Level 140 mmol/L (136-145)
== END | disposition home or self-care (01) ==
LOC: POLAB3 09:32
PROVIDERS: PCP Family Medicine Geriatric Medicine; Visit Provider Family Medicine Geriatric Medicine
DX: R53.83 Other fatigue (principal); Z12.5 Encounter for screening for malignant neoplasm of prostate; E55.9 Vitamin D deficiency, unspecified
CPT/HCPCS: 36415; 80053; 82306; 84153; 84443; 85025; G0103

== ENCOUNTER → 2024-09-22 | Outpatient (CLI) | payer MEDICARE, OTHER, SELFPAY ==
[2024-09-22 13:01] LABS: ALB/GLOB Ratio 1.2 RATIO (0.9-2.4); AST(SGOT) 19 U/L (15-37); Alanine Aminotransfer ALT/SGPT 38 U/L (16-61); Albumin, Serum 3.7 g/dL (3.2-5.0); Alkaline Phosphatase 134 U/L (45-117); Anion Gap 4 (5-15); BUN 14 mg/dL (7-18); BUN/Creat Ratio 14.6 RATIO (10-20); Calcium,Total 9.3 mg/dL (8.5-10.1); Chloride 107 mmol/L (98-107); Creatinine, Serum 0.96 mg/dL (0.70-1.30); EST Glomerular Filtration Rate 83 mL/min (>60); Est Glom Filt Rate - Afr Amer 100 mL/min (>60); Glucose 128 mg/dL (74-106); Potassium 3.8 mmol/L (3.5-5.1); Protein, Total 6.7 g/dL (6.4-8.2); Sodium Level 139 mmol/L (136-145)
== END | disposition home or self-care (01) ==
PROVIDERS: PCP Family Medicine Geriatric Medicine; Referring Provider Podiatrist; Visit Provider Podiatrist
DX: M10.472 Other secondary gout, left ankle and foot (principal)
CPT/HCPCS: 36415; 80053; 84550

== ENCOUNTER → 2024-09-30 | Outpatient (CLI) | payer MEDICARE, OTHER, SELFPAY ==
[2024-09-30 15:32] LABS: Uric Acid 6.6 mg/dL (3.5-7.2)
[2024-09-30 15:59] LABS: Hemoglobin A1c 5.5 % (3.8-5.6)
== END | disposition home or self-care (01) ==
PROVIDERS: PCP Family Medicine Geriatric Medicine; Referring Provider Podiatrist; Visit Provider Podiatrist
DX: M10.9 Gout, unspecified (principal)
CPT/HCPCS: 36415; 83036; 84550

== ENCOUNTER → 2024-10-07 | Outpatient (CLI) | payer MEDICARE, OTHER, SELFPAY ==
--- NOTE | 2024-10-07 12:11 | RAD_ITS ---
EXAM: XR THORACIC SPINE, 2 VIEWS CLINICAL INDICATION: THORACIC BACK PAIN TECHNIQUE: Frontal and lateral views of the thoracic spine. COMPARISON: No relevant prior studies available. FINDINGS: VERTEBRAE: Unremarkable. Preserved vertebral body height. No fracture. No spondylolisthesis. Preservation of the normal thoracic kyphosis. No significant facet arthropathy. DISC SPACES: Degenerative changes of the intervertebral discs. RAD/Thoracic Spine 2 Views IMPRESSION: 1. No acute injuries identified involving the thoracic spine. 2. Degenerative changes. Electronically Signed: Rikki Barney MD at 0:54 EST ,
--- NOTE | 2024-10-07 12:11 | CT_ITS ---
INDICATION: KIDNEY STONE- RIGHT FLANK PAIN EXAMINATION: CT ABDOMEN AND PELVIS WITHOUT CONTRAST - CT Abdomen And Pelvis W/O Contrast Injection TECHNIQUE: Helically acquired images were obtained of the abdomen and pelvis without oral or IV contrast. The protocol utilizes one or more of the following dose reduction techniques: automated exposure control, adjustment of mA and/or kV according to patient size,and/or use of iterative reconstruction technique. IV Contrast dosage and agent: None. Oral contrast: None. RADIATION DOSAGE (If Supplied By Facility): CTDIvol = ( 19.37 ) mGy, DLP = ( 1014.52 ) mGycm COMPARISON: No relevant prior comparison study available FINDINGS: LOWER CHEST: Lung bases are clear. No cardiomegaly or pericardial effusion. LIVER: Homogeneous. 2.6 cm low-density lesion in the right lobe of the liver likely due to cyst. GALLBLADDER AND BILIARY TREE: No calcified gallstones. No gallbladder distension or wall edema. No intra- or extrahepatic biliary ductal dilation. PANCREAS: No focal cystic or solid mass. SPLEEN: Splenomegaly. ADRENAL GLANDS: No nodules. KIDNEYS AND URETERS: Normal renal size and position. No hydronephrosis. PERITONEUM: No ascites or free air. No other fluid collection. BOWEL: No evidence of acute appendicitis. No stomach or bowel distension. Diverticulosis without evidence of acute diverticulitis. LYMPH NODES: No enlarged mesenteric or retroperitoneal lymph nodes. VESSELS: Atherosclerotic calcifications of the abdominal aorta small focal fusiform aneurysm measuring about 2.8 cm in transverse diameter. Ectasia of the common iliac arteries. URINARY BLADDER: Deformity of the bladder base probably due to previous prostatectomy. REPRODUCTIVE ORGANS: No pelvic masses. ABDOMINAL WALL: Small bilateral inguinal hernias containing fat. Very small umbilical hernia containing fat. BONES: No lytic or blastic abnormality. CT/Abdomen/Pelvis without Cont IMPRESSION: 1. Diverticulosis without evidence of acute diverticulitis. 2. No focal acute inflammatory process. 3. Splenomegaly. 4. Probable small liver cyst. Electronically Signed: Chino Cárdenas MD at 13:35 EST ,
== END | disposition home or self-care (01) ==
PROVIDERS: PCP Family Medicine Geriatric Medicine; Referring Provider Family Medicine Geriatric Medicine; Visit Provider Family Medicine Geriatric Medicine
DX: N39.0 Urinary tract infection, site not specified (principal); M54.6 Pain in thoracic spine; N20.0 Calculus of kidney
CPT/HCPCS: 72070; 74176; 87077; 87086; 87088; 87186

== ENCOUNTER 2024-10-09 03:09 | Emergency (ER) | payer MEDICARE, OTHER, SELFPAY ==
[2024-10-09 03:10] VITALS: BP 173/106; PULSE 71; RESP 19; TEMP 37; O2SAT 95; BMI 32.6
[2024-10-09 03:42] LABS: Absolute Lymphocyte Count 2.12 X10^3/uL (0.83-4.51); Absolute Neutrophil Count 11.2 X10^3/uL (2.0-7.7); Basophil# 0.09 X10^3/uL; Basophil% 0.6 % (0-1); Eosinophil# 0.13 X10^3/uL; Eosinophils% 0.9 % (0-5); Hematocrit 37.2 % (40-54); Hemoglobin 12.9 g/dL (13.0-16.5); Lymphocyte # 2.12 X10^3/ul (0.83-4.51); Lymphocyte % 14.2 % (19-41); Mean Corp Hgb Conc 34.7 g/dL (32-36); Mean Corpuscular Hgb 33.2 pg (27.0-32.0); Mean Corpuscular Volume 95.9 fL (80-94); Monocyte# 1.18 X10^3/uL; Monocyte% 7.9 % (0-10); NRBC Flagged by Analyzer 0.3 % (0-5); Neutrophil # 11.24 X10^3/uL (2.7-7.7); Neutrophil % 75.5 % (47-70); Platelet Count 124 K/mm3 (150-450); RBC Distribution Width CV 13.2 % (11.6-14.6); RBC Distribution Width SD 46.5 fl (35.1-43.9); Red Blood Count 3.88 M/mm3 (4.6-6.2); White Blood Count 14.9 K/mm3 (4.4-11.0)
[2024-10-09] MEDS: 0.9% Normal Saline (1000mL) 1,000 ML 999 ML IV (03:42)
[2024-10-09] MEDS: Morphine 4 MG/ML Syringe IV (03:42)
[2024-10-09] MEDS: Ondansetron 4 MG/2 ML Vial IV (03:42)
[2024-10-09 03:51] LABS: Mucous, Urine 0 SEEN /hpf (<or=2+); Red Blood Cells-Urine 0 SEEN /hpf (0-5); Squamous Epithelial Cells - UA 0 SEEN /hpf (0-5)
[2024-10-09] MEDS: Gabapentin 300 MG Capsule PO (03:52)
[2024-10-09 03:53] LABS: Color, Urine Yellow (Yellow); Glucose, Dipstick Normal (Normal); Ketone-Dipstick Negative (Negative); Leukocyte Esterase-Dipstick 100 /ul (Negative); Nitrite-Dipstick Negative (Negative); Occult Blood-Urine 10 /ul (Negative); Protein-Dipstick 15 mg/dl (Negative); Specific Gravity, Urine 1.015 (1.002-1.030); Urine Bilirubin Dipstick Negative (Negative); Urine Clarity Clear (Clear); Urine Urobilinogen Normal (Normal)
[2024-10-09 03:58] LABS: AST(SGOT) 17 U/L (15-37); Alanine Aminotransfer ALT/SGPT 44 U/L (16-61); Albumin, Serum 3.7 g/dL (3.2-5.0); Alkaline Phosphatase 104 U/L (45-117); Anion Gap 6 (5-15); BUN 19 mg/dL (7-18); Chloride 106 mmol/L (98-107); Creatinine, Serum 0.95 mg/dL (0.70-1.30); EST Glomerular Filtration Rate 84 mL/min (>60); Est Glom Filt Rate - Afr Amer 101 mL/min (>60); Estimated Creatinine Clearance 100.51 ml/min; Globulin 2.5 g/dL (2.2-4.2); Glucose 120 mg/dL (74-106); Lipase 34 U/L (13-75); Potassium 3.8 mmol/L (3.5-5.1); Protein, Total 6.2 g/dL (6.4-8.2); Sodium Level 138 mmol/L (136-145)
[2024-10-09 04:06] LABS: Bacteria 3+ /hpf (None Seen); White Blood Cells 5-10 SEEN /hpf (0-5)
[2024-10-09] MEDS: Ceftriaxone 1 GM/50 ML BAG IV (04:41)
--- NOTE | 2024-10-09 04:41 | EDS_ITS ---
HPI History of Present Illness Chief Complaint: Flank Pain Informant: patient and spouse/S.O. Narrative Narrative: Patient is a 69-year-old male with past medical history of GERD. He states roughly 3 days ago he began with right sided flank pain. He states there was no trauma or excessive activity. He reports that he contacted his family doctor who ordered a urine culture and a noncontrast CT. he states he has not received the results but has having increasing pain this evening and therefore comes in for evaluation. [facility] Medical History (Updated 10/09/24 @ 04:[address] Derrek Gonsalez, DO) Loss of hearing Wears glasses Alcohol use Prostate disease Fatty liver Easy bruising Back pain Injury of head and neck Meniere disease History of hiatal hernia Gastric reflux Former smoker CPAP (continuous positive airway pressure) dependence Leg cramps History of edema History of echocardiogram History of stress test History of rheumatic fever Chronic neck and back pain Shoulder pain Hemorrhoids Arthritis Home Medications ?Medication ?Instructions ?Recorded ?Last Taken ?Type omeprazole 20 mg tablet,delayed 20 mg PO DAILY 09/03/18 02/18/23 08:00 History release ciprofloxacin HCl 500 mg tablet 500 mg PO BID 7 days #14 tabs 10/09/24 Unknown Rx (Cipro) gabapentin 300 mg capsule 300 mg PO TID 30 days #90 caps 10/09/24 Unknown Rx oxycodone-acetaminophen 5 mg-325 1 tab PO Q6H PRN pain 5 days #20 10/09/24 Unknown Rx mg tablet (Percocet) tabs valacyclovir 1 gram tablet 1,000 mg PO TID 7 days #21 tabs 10/09/24 Unknown Rx (Valtrex) Allergy/AdvReac Type Severity Reaction Status Date / Time No Known Allergies Allergy Verified 10/09/24 03:13 Surgical History History of esophagogastroduodenoscopy (EGD) Hx of colonoscopy Hx of inguinal hernia repair History of vocal cord polypectomy Social History (Updated 09/03/18 @ 14:18 by Ирина RING, PA) Smoking Status: Former smoker ROS ROS ED Constitutional Constitutional ED: Denies chills or fever(s) Eyes Eyes: Denies blurry vision or change in vision ENT ENT ED: Denies sore throat Cardiovascular Cardiovascular: Denies chest pain Respiratory/Chest Respiratory/Chest: Denies cough or dyspnea Gastrointestinal Gastrointestinal: Reports abdominal pain; Denies diarrhea, nausea or vomiting Genitourinary Genitourinary ED: Denies dysuria, hematuria or urinary frequency Musculoskeletal Musculoskeletal: Reports back pain Integumentary Denies rash Neurologic Neurologic: Denies headache(s) Hematologic/Lymphatic Hematologic/Lymphatic: Denies easy bleeding or easy bruising EXAM Physical Exam Const Vital Signs: 10/09/24 03:10 Temperature 98.6 F Temperature Source Oral Pulse Rate 71 Respiratory Rate 19 H Blood Pressure 173/106 H Blood Pressure Mean 128 Pulse Ox 95 Oxygen Delivery Method Room Air Positive well nourished and well developed General Appearance ED: well developed HEENT HEENT Narrative: Normocephalic atraumatic Eyes PERRL and EOMs intact bilaterally General Eye ED: Negative for scleral icterus Neck supple Neck Narrative: No nuchal rigidity or meningeal sign Resp normal respiratory effort and clear to auscultation bilaterally Cardio regular rate and regular rhythm Rate: other Other Details: Regular rate and rhythm without murmurs rubs or gallops Radial and carotid pulses are equal and symmetric GI normal to inspection, nondistended, normoactive bowel sounds, non-tender, non- distended and no masses GI Narrative: No voluntary guarding or rigidity or pulsatile mass Auscultation: normoactive bowel sounds Palpation: soft Back/Spine no CVA tenderness Extremity normal to inspection Extremity Narrative: No asymmetric edema no pitting edema negative Homans' sign bilaterally Neuro oriented x3, CN's II-XII intact bilaterally and no sensory deficits noted Sensorium / Orientation: alert Motor Exam: strength 5/5 throughout Psych mental status grossly normal Skin Skin Narrative: Patient has an erythematous vesicular rash in a dermatomal pattern extending from the right flank to the right abdomen consistent with herpes zoster. MDM MDM MDM Narrative Medical decision making narrative: Patient arrived to the ER hypertensive but otherwise with stable vital. He had an outpatient noncontrast CT and urine culture obtained prior to evaluation in the ER. The chart was reviewed and the CT scan did not reveal any clinically significant findings such as kidney stone or acute cholecystitis or cholelithiasis. Urine culture pulmonary result is Streptococcus. There is concern he is developing pyelonephritis versus missed kidney stone versus biliary colic or pancreatitis. The fact that the patient's lipase and liver enzymes are normal go against pancreatitis or gallbladder dysfunction. The fact the recent outpatient CT scan revealed no signs of intestinal infection or kidney stone go against these diagnoses as well. On physical exam the patient did have a rash consistent with shingles. This would correlate with the initial pain a few days prior to the rash onset. However as he already had a urine culture obtained that is showing Streptococcus there is concern for pyelonephritis. The urine sample obtained today does show infection with white blood cells and bacteria without contamination. I did not feel the need to repeat a culture as 1 is already been obtained from his family doctor. With the patient having right flank pain and a urine sample consistent with UTI this is most likely pyelonephritis which weaken his immune system allowing the herpes zoster to present. At this time however he is not septic he does not have AYAH or clinically significant electrolyte abnormalities so there is no need for inpatient hospitalization. Patient to be placed on antibiotics as an outpatient and is otherwise safe for discharge History & Record Review Discussion w/independent historian: Patient and Significant other Lab Data Attestation: I reviewed the patient's lab results. Labs: Laboratory Results - last 24 hr 10/09/24 10/09/24 03:22 03:45 WBC 14.9 H RBC 3.88 L Hgb 12.9 L Hct 37.2 L MCV 95.9 H MCH 33.2 H MCHC 34.7 RDW Std Deviation 46.5 H RDW Coeff of Amairani 13.2 Plt Count 124 L MPV 10.0 Immature Gran % (Auto) 0.900 Neut % (Auto) 75.5 H Lymph % (Auto) 14.2 L Smith % (Auto) 7.9 Eos % (Auto) 0.9 Baso % (Auto) 0.6 Absolute Neuts (auto) 11.2 H Absolute Lymphs (auto) 2.12 Nucleated RBC % 0.3 Sodium 138 Potassium 3.8 Chloride 106 Carbon Dioxide 26.0 Anion Gap 6 BUN 19 H Creatinine 0.95 Estim Creat Clear Calc 100.51 Est GFR (MDRD) Af Amer 101 Est GFR (MDRD) Non-Af 84 BUN/Creatinine Ratio 20.0 Glucose 120 H Calcium 9.0 Total Bilirubin 0.70 Direct Bilirubin 0.20 AST 17 ALT 44 Alkaline Phosphatase 104 Total Protein 6.2 L Albumin 3.7 Globulin 2.5 Lipase 34 Urine Color Yellow Urine Clarity Clear Urine pH 6.0 Ur Specific [place] 1.015 Urine Protein 15 H Urine Glucose (UA) Normal Urine Ketones Negative Urine Occult Blood 10 H Urine Nitrite Negative Urine Bilirubin Negative Urine Urobilinogen Normal Ur Leukocyte Esterase 100 H Urine RBC 0 SEEN Urine WBC 5-10 SEEN Ur Squamous Epith Cells 0 SEEN Urine Bacteria 3+ Urine Mucus 0 SEEN Discharge Plan Triage Chief Complaint: Flank Pain ED Provider: Derrek Gonsalez Dx/Rx/DC Orders Clinical Impression: Herpes zoster, Acute pyelonephritis, GERD (gastroesophageal reflux disease) Instructions: ED Shingles (Herpes Zoster), ED Pyelonephritis, Male (Adult) Prescriptions: New gabapentin 300 mg capsule 300 mg PO TID 30 Days Qty: 90 0RF oxycodone-acetaminophen [Percocet] 5-325 mg tablet 1 tab PO Q6H PRN (Reason: pain) 5 Days Qty: 20 0RF ciprofloxacin HCl [Cipro] 500 mg tablet 500 mg PO BID 7 Days Qty: 14 0RF valacyclovir [Valtrex] 1 gram tablet 1,000 mg PO TID 7 Days Qty: 21 0RF No Action omeprazole 20 mg tablet,delayed release (DR/EC) 20 mg PO DAILY Primary Care Provider: Robert Harden Chi Referrals: Robert Harden Chi, MD [Primary Care Provider] - Activity Restrictions/Additional Instructions: Please return to the ER should you have any further concerns or worsening of symptoms Print Language: Citizen Of [place] Disposition Disposition: Home, Self Care
[2024-10-09] MEDS: oxyCODONE 5 MG Tablet 10 MG PO (05:08)
[2024-10-09 05:12] VITALS: BP 163/103; PULSE 59; RESP 16; TEMP 36.6; O2SAT 95
== END 2024-10-09 05:13 | disposition home or self-care (01) ==
PROVIDERS: Emergency Provider Emergency Medicine; PCP Family Medicine Geriatric Medicine; Visit Provider Emergency Medicine
DX: R10.9 Unspecified abdominal pain (principal); N10 Acute pyelonephritis; B02.9 Zoster without complications; Z87.891 Personal history of nicotine dependence; K21.9 Gastro-esophageal reflux disease without esophagitis; Z79.899 Other long term (current) drug therapy
CPT/HCPCS: 80048; 80076; 81001; 83690; 85025; 96361; 96365; 96375; 99283; A4216; J2405

== ENCOUNTER → 2025-01-18 | Outpatient (CLI) | payer MEDICARE, OTHER, SELFPAY ==
--- NOTE | 2025-01-18 10:43 | RAD_ITS ---
PROCEDURE: THORACIC SPINE 2 VIEWS (RADSPT2), 01/18/2025 REASON FOR EXAM: RADICULOPATHY, THORACIC REGION TECHNIQUE: AP and lateral views of the thoracic spine were obtained in addition to a swimmer's view. COMPARISON: None FINDINGS: Limited evaluation of the upper thoracic spine on the lateral views due to superimposition of the shoulders, despite a swimmer's view. Fracture/dislocation: None visible. Vertebral body heights: Preserved. Alignment: Unremarkable Disc spaces: Variable disc height loss up to mild with marginal osteophytes. Soft tissues: Trace atherosclerosis in the arch. Foreign bodies: None visible. Bone mineralization: Grossly unremarkable. RAD/Thoracic Spine 2 Views IMPRESSION: 1. No visible acute displaced fracture. 2. Mild radiographically evident spondylosis and additional description as abov e. Reading Location: [id number]
== END | disposition home or self-care (01) ==
LOC: RAD 10:42
PROVIDERS: PCP Family Medicine Geriatric Medicine; Referring Provider Anesthesiology Pain Medicine; Visit Provider Anesthesiology Pain Medicine
DX: M54.14 Radiculopathy, thoracic region (principal)
CPT/HCPCS: 72070

== ENCOUNTER → 2025-02-09 | Outpatient (CLI) | payer MEDICARE, OTHER, SELFPAY ==
--- NOTE | 2025-02-09 14:46 | RAD_ITS ---
PROCEDURE: CERV SPINE 2 OR 3 VIEWS 02/09/2025 REASON FOR EXAM: RADICULOPATHY, CERVICAL REGION TECHNIQUE: 3 views of the cervical spine. COMPARISON: None FINDINGS: Cervical lordosis is maintained. Atlantoaxial interval is maintained. Vertebral body heights and disc spaces are within normal limits. Minimal spondylotic changes including small endplate osteophytes. No acute fracture or traumatic subluxation. Precervical soft tissue planes are maintained. RAD/Cerv Spine 2 or 3 Views IMPRESSION: No acute findings. No significant spondylotic changes. Reading Location: [facility]
== END | disposition home or self-care (01) ==
LOC: RAD 14:45
PROVIDERS: PCP Family Medicine Geriatric Medicine; Referring Provider Anesthesiology Pain Medicine; Visit Provider Anesthesiology Pain Medicine
DX: M54.12 Radiculopathy, cervical region (principal)
CPT/HCPCS: 72040

== ENCOUNTER 2025-03-02 09:30 | Outpatient (RCR) | payer MEDICARE, OTHER, SELFPAY ==
--- NOTE | 2025-02-20 21:26 | HP.PTEVAL ---
Patient's Visit Information Visit Information Visit Information: DANIELLA RUGGIERO is a 70 year old M referred to Physical Therapy by Dr. Ruma Romero MD with a diagnosis of CERVICAL RADICULOPATHY. Date of Evaluation: 02/17/25 Physical Therapist: Vicky Laird, PT, Cert MDT Visit Plan Frequency: 2x /Week Duration: 4-6 Weeks Plan: PT 2X'S A WK X 8 - 12 VISITS. POSTURAL CORRECTION AND STRENGTHENING. R UE STRENGTHENING WITH HEP INSTRUCTION. Subjective Subjective: Work/Leisure: RETIRED. 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 Present symptoms: R UE WEAKNESS. NO NECK PAIN OR R UE PAIN. INTERMITTENT R UPPER ARM AND FOREARM TINGLING. CONSTANT R UE NUMBNESS DIGITS 4 AND 5. PATIENT REPORTS HE HAS R FLANK PAIN FROM SHINGLES WHEN THINGS LIKE HIS SHIRT ARE TOUCHING HIM BUT DOCTOR SAYS IT IS A DIFFERENT ISSUE. Present since: NOV 2024 Getting Better, Getting Worse or Staying the Same: STAYING THE SAME Commenced as a result of: NO APPARENT REASON Symptoms at onset: NUMBNESS IN FINGERS Worse: SHOWER WATER HITTING R ARM, PUTTING SHIRT ON/OFF, RUBBING IT Better: NOT DOING ABOVE THEN NO R UE TINGLING. NUMBNESS IS CONSTANT. Disturbed sleep: NO Previous history/Previous treatment: NO HX OF R UE WEAKNESS BUT THINKS HE HAD L UE WEAKNESS FROM A NECK PROBLEM ABOUT 15 YEARS AGO TREATED WITH TRACTION. This episode: NOTHING Dizziness: YES Tinnitus: NO Nausea: NO Shortness of Breath: NO Difficulty Swallowing: NO Gait: NORMAL. WALKING ABOUT 3 MILES A DAY Accidents: NO Unexplained weight loss: NO Imagin02/09/25 NECK X-RAY: Cervical lordosis is maintained. Atlantoaxial interval is maintained. Vertebral body heights and disc spaces are within normal limits. Minimal spondylotic changes including small endplate osteophytes. No acute fracture or traumatic subluxation. Precervical soft tissue planes are maintained. RAD/Cerv Spine 2 or 3 Views IMPRESSION: No acute findings. No significant spondylotic changes. PMH/Recent major surgery: Meniere's DZ. ACID REFLUX Objective Objective: Sitting Posture/Standing Posture: FH. RSH'S. NO TORTICOLLIS. Active Correction of posture: ABLE TO PARTIALLY CORRECT. DOES NOT MAINTAIN. NE ON R UE NUMBNESS OR TINGLING. Other Observations: INDEP GAIT AND TRANSFERS Sensory deficit: HYPERSENSATIVITY OF R UPPER ARM AND FOREARM COMPARED TO L WITH LIGHT TOUCH SENSATION TESTING. DECREASED LIGHT TOUCH SENSATION R 4TH AND ESPECIALLY 5TH DIGITIS COMPARED TO LEFT. 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 Cervical Mvmt Loss: Flex: NIL Pro: NIL Ext: MOD Ret: MOD RSB: MIN LSB: MIN R Rot: MIN L Rot: MIN CERVICAL ROM TESTING HAS NE ON R UE NUMBNESS OR TINGLING. OTHER: SEATED CERVICAL DISTRACTION TESTING: NE ON R UE NUMBNESS OR TINGLING. Postural strength: FAIR Palpation: NO ACUTE TENDERNESS OF DOMINIQUE SHOULDERS, UPPER THORACIC, CERVICAL OR OCCIPUT REGIONS. Balance/Special Test Scores Oswestry Neck Score: 8 Goals Goal 1:: PATIENT WILL HAVE R UE STRENGTH EQUAL TO OR GREATER THAN L UE. Goal Time Frame: 6-8 Weeks Goal 2:: PATIENT WILL BE INDEP WITH HEP TO MAINTAIN IMPROVEMENT IN R UE STRENGTH. Goal Time Frame: 6-8 Weeks Rehabilitation Potential Physical Therapy Diagnosis: POSTURAL TIGHTNESS AND WEAKNESS. R UE WEAKNESS AND ALTERED SENSATION. Rehabilitation Potential: Fair Anticipated Interventions Patient/Client Instruction: Educate patient on: Condition, Plan of Care and Risk Factors For the Purpose of:: To improve self management Therapeutic Exercise to Include: Strength training, Body mechanics, Postural training, Flexibilty training, Neuromotor development and Scapular Strength/Stabilization For the Purpose of:: To decrease pain, To increase ROM, To improve muscle performance and motor function, To increase tolerance to activity/condition/position, To improve ability of physical actions for home/community/work/leisure and To improve self management Text: Thank you for the opportunity to evaluate your patient. For Medicare and Medicare HMO plans, please review the plan of care and approve it. It will need to be FAXED BACK to us at [phone] for Medicare purposes. For Medicare only, by signing this I certify the plan of care. Please let me know if there are questions or concerns regarding this plan of care. Physician Signature: Date:
== END 2025-03-02 19:00 | disposition home or self-care (01) ==
LOC: PT 09:30
PROVIDERS: PCP Family Medicine Geriatric Medicine; Referring Provider Anesthesiology Pain Medicine; Visit Provider Anesthesiology Pain Medicine
DX: M47.812 Spondylosis without myelopathy or radiculopathy, cervical region (principal)
CPT/HCPCS: 97110; 97162; 97530

== ENCOUNTER → 2025-06-16 | Outpatient (CLI) | payer MEDICARE, OTHER, SELFPAY ==
[2025-06-16 10:36] LABS: Hematocrit 43.8 % (40-54); Hemoglobin 15.2 g/dL (13.0-16.5); Immature Granulocytes Count 0.040 X10^3/uL (0.0-0.0); Mean Corp Hgb Conc 34.7 g/dL (32-36); Mean Corpuscular Volume 97.6 fL (80-94); Mean Platelet Vol. 10.4 fl (6.2-12.0); NRBC Flagged by Analyzer 0.8 % (0-5); Platelet Count 112 K/mm3 (150-450); RBC Distribution Width CV 13.2 % (11.6-14.6); RBC Distribution Width SD 47.7 fl (35.1-43.9); Red Blood Count 4.49 M/mm3 (4.6-6.2); White Blood Count 7.1 K/mm3 (4.4-11.0)
[2025-06-16 11:54] LABS: PSA,Total - Annual Screen 0.23 ng/mL (0.02-4.00); Vitamin D,25 Hydroxy 42.5 ng/mL (30-100)
[2025-06-16 12:05] LABS: AST(SGOT) 29 U/L (<=37); Alanine Aminotransfer ALT/SGPT 35 U/L (<=46); Albumin, Serum 4.7 g/dL (3.4-4.8); Alkaline Phosphatase 128 U/L (40-129); Anion Gap 12 (5-15); BUN 11 mg/dL (4-19); BUN/Creat Ratio 11.6 RATIO (10-20); Calcium,Total 9.6 mg/dL (7.6-11.0); Carbon Dioxide 24.4 mmol/L (21.0-32.0); Chloride 104 mmol/L (98-108); Globulin 2.4 g/dL (2.2-4.2); Glucose 110 mg/dL (70-99); Potassium 4.6 mmol/L (3.3-5.1)
[2025-06-16 12:54] LABS: Cholesterol 150 mg/dL (<=200); Low Density Lipoprotein Calc. 85 mg/dL; Triglycerides 82 mg/dL; Very Low Density Lipoprotein 16 mg/dL (5-40); cholesterol:hdl ratio screen 3.09
== END | disposition home or self-care (01) ==
PROVIDERS: PCP Family Medicine Geriatric Medicine; Referring Provider Family Medicine Geriatric Medicine; Visit Provider Family Medicine Geriatric Medicine
DX: E78.5 Hyperlipidemia, unspecified (principal); R53.83 Other fatigue; E03.9 Hypothyroidism, unspecified; Z12.5 Encounter for screening for malignant neoplasm of prostate; E55.9 Vitamin D deficiency, unspecified
CPT/HCPCS: 36415; 80053; 80061; 82306; 84153; 84443; 85025; G0103